=== PATIENT | male | born 1995 | race Caucasian/White ===

== ENCOUNTER 2022-10-31 17:45 | Emergency (ER) | payer OTHER ==
[2022-10-31 17:57] VITALS: BP 129/75; PULSE 77; RESP 18; TEMP 97; BMI 25.0
[2022-10-31] MEDS ORDERED: DIPHTH,PERTUSS(ACELL),TET 0.5 ML DISP.SYRIN IM ONE ×2 (18:22→18:43)
== END 2022-10-31 19:08 | disposition home or self-care (01) ==
LOC: EDBD → JERFT 17:45 → JER 17:45 → JERFT 19:08
PROC: 0HQEXZZ Repair Left Lower Arm Skin, External Approach (ICD-10-PCS; principal; 2022-10-31)
PROC: 3E0234Z Introduction of Serum, Toxoid and Vaccine into Muscle, Percutaneous Approach (ICD-10-PCS; 2022-10-31)
DX: S51.812A Laceration without foreign body of left forearm, initial encounter (principal); W26.0XXA Contact with knife, initial encounter
CPT/HCPCS: 12001-25; 90471; 90715; 99282-25

== ENCOUNTER 2022-11-10 11:33 | Emergency (ER) | payer SELFPAY ==
[2022-11-10 11:41] VITALS: BP 111/72; PULSE 68; RESP 18; TEMP 9838; BMI 23.3
== END 2022-11-10 12:32 | disposition home or self-care (01) ==
LOC: JER 11:33 → JERFT 11:33
DX: Z48.02 Encounter for removal of sutures (principal)
CPT/HCPCS: 99281-25